=== PATIENT | male | born 1955 | race Caucasian/White ===

== ENCOUNTER 2018-08-17 22:19 | Emergency (ER) | payer OTHER ==
--- NOTE | 2018-08-17 22:26 | ED Physician Documentation ---
Male Genitourinary Problems - HISTORIAN Historian: patient - HPI Stated Complaint: urinary retention Chief Complaint: Male Genitourinary Problems Onset: days ago (2) Duration: continues in ED Severity: moderate Further Comments: yes (He reports a history of urinary retention - he has a urologist appt . He denies any pain with urination. He reports he has been without his normal meds for two days and he is at an alcohol treatment center so they brought him to the ER) - Associated Symptoms Problems Urinating: other (unable to void ) Testicular Pain: none Testicular Swelling: none Penile Pain: No Penile Swelling: No Inguinal Mass: No Flank Pain: none Abdominal Pain: none - Sexual History Sexual History: non-contributory - ROS CONST: none - PAST HX Past History: other (urinary retention, depression, alcohol abuse ) Allergies/Adverse Reactions: Allergies Allergy/AdvReac Type Severity Reaction Status Date / Time No Known Allergies Allergy Verified 08/17/18 22:33 - SOCIAL HX Smoking History: non-smoker Alcohol Use: sober Drug Use: none - FAMILY HX Family History: none - VITAL SIGNS Vital Signs: Vital Signs Temp Pulse Resp BP Pulse Ox 97.8 F 78 20 116/88 96 08/17/18 23:05 08/17/18 23:05 08/17/18 23:05 08/17/18 23:05 08/17/18 23:05 - REVIEWED ASSESSMENTS Nursing Assessment Reviewed: Yes Vitals Reviewed: Yes Progress - Progress Progress: 2250: discussed results and plan. He actually states he did void a good amount before coming but he had already told the staff he needed to come. Plan is discussed and He is agreeable DG ED Results Lab/Radiology - Orders Orders: ED Orders Category Date Time Status In & Out Catheter [Urinary catheterization] 1T Care 08/17/18 22:34 Active UA W/MICRO IF INDICATED Routine Lab 08/17/18 22:40 Ordered Sulfamethoxazole/Trimethoprim [Bactrim Ds] Med 08/17/18 22:54 Discontinued 1 each PO NOW ONE Male Genitourinary Problems - EXAM General Appearance: no acute distress, alert Abdomen: non-tender Genitals: nml inspection EENT: eye inspection normal, no signs of dehydration Neck: nml inspection Respiratory: no resp distress, chest non-tender, breath sounds normal CVS: reg rate & rhythm, heart sounds normal, equal pulses, no murmur Back: non-tender. No: CVA tenderness Extremities: normal range of motion Neuro/Psych: oriented X3 Skin: warm/dry, normal color Discharge Clincal Impression: UTI (urinary tract infection) Qualifiers: Urinary tract infection type: site unspecified Hematuria presence: without hematuria Qualified Code(s): N39.0 - Urinary tract infection, site not specified Referrals: Primary Doctor,No [Primary Care Provider] - 2 Days Comments: 1. Increase fluids 2. Bactrim Take 1 by mouth twice daily x 10 days 3. Keep appt with urology 4. Follow up with PCP in 4 days 5. Return to ER for increasing concerns Condition: Stable Disposition: 01 HOME, SELF-CARE Decision to Admit: NO Date of Decison to Admit: 08/17/18 Decision Time: 22:53
[2018-08-17 22:48] VITALS: BP 116/88
[2018-08-17] MEDS: SULFAMETHOXAZOLE/TRIMETHOPRIM 800/160MG TAB PO ONE (23:01)
[2018-08-18 08:39] LABS: APPEARANCE,URINE CLOUDY (CLEAR); COLOR,URINE YELLOW (YELLOW); OCCULT BLOOD,URINE TRACE-LYSED (NEGATIVE); PH URINE 8.5 (5.0 - 8.0)
== END 2018-08-17 23:04 | disposition home or self-care (01) ==
LOC: ED 22:19
DX: N39.0 Urinary tract infection, site not specified (principal)
CPT/HCPCS: 51701; 81002; 87086; 99283; A9270